=== PATIENT | male | born 1990 | race Caucasian/White ===

== ENCOUNTER 2021-02-06 07:42 | Emergency (ER) | payer OTHER ==
[2021-02-06 08:36] LABS: HEMOGLOBIN 16.6 gm/dl (14.0-17.5); RED BLOOD COUNT 5.31 M/UL (4.20-5.50); WHITE BLOOD COUNT 6.3 K/UL (4.5-11.0)
[2021-02-06 08:57] LABS: BUN/CREATININE RATIO 12 (0-10)
[2021-02-06] MEDS ORDERED: PROAIR DIGIHAL90 MCG INH (10:22)
[2021-02-06] MEDS ORDERED: MEDROL DOSEPAK 24 MG PO (10:22)
== END 2021-02-06 10:35 | disposition home or self-care (01) ==
LOC: ER1 07:42
PROVIDERS: Emergency Medicine
DX: R06.02 Shortness of breath (principal); F17.200 Nicotine dependence, unspecified, uncomplicated; Z20.822 Contact with and (suspected) exposure to COVID-19
CPT/HCPCS: 0240U; 71045; 80053; 83605; 85025; 85379; 85610; 85730; 93005; 99285

== ENCOUNTER 2022-06-12 20:49 | Emergency (ER) | payer OTHER ==
[~2022-06-12 20:49] MED LIST: MEDROL DOSEPAK 24 MG PO; PROAIR DIGIHAL90 MCG INH
[2022-06-12 21:29] LABS: HEMOGLOBIN 14.4 gm/dl (14.0-17.5); RED BLOOD COUNT 4.7 M/UL (4.20-5.50); WHITE BLOOD COUNT 7.5 K/UL (4.5-11.0)
[2022-06-12 22:18] LABS: BUN/CREATININE RATIO 26 (0-10)
[2022-06-12] MEDS ORDERED: KEPPRA500 MG PO (23:48)
== END 2022-06-13 00:01 | disposition home or self-care (01) ==
LOC: ER1 20:49
PROVIDERS: Emergency Medicine; Student in an Organized Health Care Education/Training Program
DX: R56.9 Unspecified convulsions (principal); R10.9 Unspecified abdominal pain; R19.7 Diarrhea, unspecified; F17.200 Nicotine dependence, unspecified, uncomplicated; Z20.822 Contact with and (suspected) exposure to COVID-19
CPT/HCPCS: 70450; 71045; 80053; 80307; 81001; 82550; 82553; 83690; 84484; 85025; 87081; 87880; 93005; 99285; Q9967; U0002